=== PATIENT | male | born 1960 | race Two or more races ===

== ENCOUNTER 2025-02-02 05:16 | Day surgery (SDC) | payer OTHER ==
[2025-01-26 15:21] LABS: HEMATOCRIT 47.8 % (39.0-48.0); HEMOGLOBIN 16.3 g/dL (13-16.00); MEAN CELL VOLUME 92.4 fL (80.0-100.00); MEAN CORPUSCULAR HEMOGLOBIN 31.4 pg (27.00-32.0); PLATELET COUNT 266 K/uL (150-450); RED BLOOD COUNT 5.18 M/uL (4.00-6.00); RED CELL DISTRIBUTION WIDTH 12.6 % (11.5-14.5)
[2025-01-26 15:27] LABS: BILIRUBIN TOTAL 0.63 mg/dL (0.3-1.2); CALCIUM 9.8 mg/dL (8.5-10.1); CREATININE SERUM 0.75 mg/dL (0.70-1.30); GFR 104.52; POTASSIUM 4.45 mEq/L (3.5-5.1)
[2025-01-26 15:29] LABS: INR 1.01; PARTIAL THROMBOPLASTIN TIME 26.7 SECONDS (22.0-34.0)
[~2025-02-02 05:16] MED LIST: PROTONIX40 MG PO
== END 2025-02-02 11:20 | disposition home or self-care (01) ==
LOC: CIR.AMB 05:16
PROVIDERS: ATTEND Internal Medicine
DX: D37.1 Neoplasm of uncertain behavior of stomach (principal); K31.89 Other diseases of stomach and duodenum; K31.7 Polyp of stomach and duodenum; R93.3 Abnormal findings on diagnostic imaging of other parts of digestive tract; Z91.013 Allergy to seafood

== ENCOUNTER 2025-04-07 17:17 | Emergency (ER) | payer OTHER ==
[~2025-04-07] VITALS: Ht 175.3 cm; Wt 83.0 kg
[2025-04-07] MEDS ORDERED: JARDIANCE10 MG PO (17:46)
[2025-04-07] MEDS ORDERED: GLIMEPIRIDE4 M1 PO (17:47)
[2025-04-07] MEDS ORDERED: VALSARTAN80 MG PO (17:47)
[2025-04-07] MEDS ORDERED: MECLIZINE HCL 25 MG TABLET PO ONE ×2 (18:15→18:19)
[2025-04-07] MEDS ORDERED: 0.9 % SODIUM CHLORIDE 1,000 ML IV SCH (18:15)
[2025-04-07 19:10] LABS: CREATININE SERUM 0.8 mg/dL (0.70-1.30); GFR 97.02; POTASSIUM 4.75 mEq/L (3.5-5.1)
[2025-04-07 19:17] LABS: HEMATOCRIT 42.4 % (40.1-51.0); HEMOGLOBIN 15.4 g/dL (13.7-17.5); RED BLOOD COUNT 4.84 M/uL (4.63-6.08)
[2025-04-07 19:18] LABS: BASO % 0.2 % (0.1-1.2); LYMPH # 0.85 (1.18-3.74); LYMPH % 7.1 % (19.3-53.1); MEAN CORPUSCULAR HEMOGLOBIN 31.8 pg (25.6-32.2); MONO # 0.24 (0.24-0.82); NEUT # 10.87 (1.56-6.13); NEUT % 90.5 % (34.0-71.1); PLATELET COUNT 302 K/uL (163-369)
[2025-04-07 19:31] LABS: PH,URINE 7.5 (5.0-8.0); URINE APPEARANCE Clear; URINE BILIRRUBIN Negative (NEGATIVE); URINE BLOOD Negative; URINE COLOR Yellow; URINE KETONE Negative (NEGATIVE); URINE LEUKOCYTE Negative; URINE NITRATE Negative; URINE PROTEIN Negative (NEGATIVE); URINE UROBILINOGEN 0.2 E.U./dl
[2025-04-07 19:39] LABS: RED CELL DISTRIBUTION WIDTH 11.8 % (11.6-14.4)
[2025-04-07 19:54] LABS: URINE BACTERIA 0 uL (0.0-1933); URINE GLUCOSE >=1000 MG/DL (NEGATIVE); URINE RBC 1.6 uL (0.0-20.8); URINE WBC 1.2 uL (0.0-23.2)
[2025-04-08] MEDS ORDERED: PROMETHAZINE HCL 50 MG/ML AMPUL IM STA (00:38)
[2025-04-08] MEDS ORDERED: PROMETHAZINE HCL 50 MG/ML AMPUL IM ONE (00:44)
[2025-04-08] MEDS ORDERED: MECLIZINE HCL25 MG PO (03:37)
== END 2025-04-08 04:11 ==
LOC: ER 17:18
PROVIDERS: Emergency Medicine
DX: R42 Dizziness and giddiness (principal); I10 Essential (primary) hypertension; Z91.013 Allergy to seafood; E11.9 Type 2 diabetes mellitus without complications; Z79.84 Long term (current) use of oral hypoglycemic drugs
CPT/HCPCS: 36415; 70450; 96365; 96366; 96372; 99284; J2250; J7030